=== PATIENT | female | born 1995 ===

== ENCOUNTER 2017-11-18 13:01 | Outpatient (CLI) | payer OTHER ==
[~2017-11-18] VITALS: Ht 157.5 cm; Wt 54.4 kg
== END 2017-11-18 13:15 | disposition home or self-care (01) ==
LOC: OFIC 805 13:01
DX: J36 Peritonsillar abscess (principal); E04.1 Nontoxic single thyroid nodule

== ENCOUNTER 2017-11-18 15:36 | Outpatient (CLI) | payer OTHER | END 2017-11-18 15:40 | disposition home or self-care (01) | LOC: LAB 15:36 | DX: J35.01 Chronic tonsillitis (principal) ==

== ENCOUNTER 2018-01-24 08:35 | Outpatient (CLI) | payer OTHER ==
[~2018-01-24] VITALS: Ht 152.4 cm; Wt 54.4 kg
== END 2018-01-24 15:13 | disposition home or self-care (01) ==
LOC: OFIC 805 08:35
DX: E04.1 Nontoxic single thyroid nodule (principal); J36 Peritonsillar abscess; H61.23 Impacted cerumen, bilateral

== ENCOUNTER 2018-04-09 10:42 | Outpatient (CLI) | payer OTHER ==
[~2018-04-09] VITALS: Ht 152.4 cm; Wt 54.4 kg
== END 2018-04-09 11:05 | disposition home or self-care (01) ==
LOC: OFIC 805 10:42
DX: E04.1 Nontoxic single thyroid nodule (principal); J36 Peritonsillar abscess; H92.02 Otalgia, left ear

== ENCOUNTER 2018-10-27 12:31 | Outpatient (CLI) | payer OTHER ==
[~2018-10-27] VITALS: Ht 152.4 cm; Wt 54.4 kg
== END 2018-10-27 12:45 | disposition home or self-care (01) ==
LOC: OFIC 805 12:31
DX: E04.1 Nontoxic single thyroid nodule (principal); H92.02 Otalgia, left ear; K65.1 Peritoneal abscess

== ENCOUNTER 2018-10-27 14:36 | Outpatient (CLI) | payer OTHER | END 2018-10-27 15:00 | disposition home or self-care (01) | LOC: LAB 14:36 | DX: J03.80 Acute tonsillitis due to other specified organisms (principal) ==

== ENCOUNTER 2018-10-29 16:50 | Emergency (ER) | payer OTHER ==
[~2018-10-29] VITALS: Ht 157.5 cm; Wt 52.2 kg
[2018-10-29] MEDS ORDERED: AMOX1TAB5 (17:04)
[2018-10-29] MEDS ORDERED: DEXAMETHAS0.5 MG/5 M (17:04)
== END 2018-10-29 19:09 | disposition home or self-care (01) ==
LOC: ER 16:50
DX: J36 Peritonsillar abscess (principal)